=== PATIENT | male | born 1970 | race Caucasian/White ===

== ENCOUNTER 2017-04-23 15:20 | Outpatient (CLI) | payer BC, OTHER | END 2017-04-23 15:21 | disposition home or self-care (01) | LOC: LAB.R 15:20 | PROVIDERS: ATTEND Family Medicine | DX: N39.0 Urinary tract infection, site not specified (principal) | CPT/HCPCS: 87077; 87086 ==

== ENCOUNTER 2017-06-01 19:34 | Emergency (ER) | payer OTHER, BC ==
[2017-06-01 19:45] VITALS: BP 147/94
--- NOTE | 2017-06-01 21:31 | ED Physician Documentation ---
PD HPI UPPER EXT INJURY - Stated complaint Stated Complaint: RT ARM INJURY - Chief complaint Chief Complaint: Ext Problem - History obtained from History obtained from: Patient - History of Present Illness Location: Right, Arm (upper) Where injury occurred: Work Timing - onset: How many hours ago (1) Timing - duration: Hours (1) Timing - details: Abrupt onset Pain level max: 8 Pain level now: 6 Improved by: Rest, Ice, Immobilization Worsened by: Moving, Palpating Associated symptoms: No: Weakness, Numbness, Tingling, Swelling Similar symptoms before: Has not had sx before Recently seen: Not recently seen - Additonal information Additional information: Patient works as a middle school math teacher for [employer] and there was a vehicle stuck in the mud, they were trying to lift the vehicle to remove it from the mild when he felt a ripping tearing sensation in the right bicep. He is right-handed Review of Systems Constitutional: denies: Fever, Chills GI: denies: Vomiting Neurologic: denies: Focal weakness, Numbness PD PAST MEDICAL HISTORY - Past Medical History Past Medical History: Yes Cardiovascular: High cholesterol - Past Surgical History Past Surgical History: No - Present Medications Home Medications: Ambulatory Orders Medication Instructions Recorded Confirmed Cyclobenzaprine [Flexeril] 10 mg PO TID PRN #20 tablet 06/01/17 Meloxicam [Mobic] 15 mg PO DAILY PRN #20 tablet 06/01/17 Simvastatin 1 tab PO DAILY 06/01/17 06/01/17 - Allergies Allergies/Adverse Reactions: Allergies Allergy/AdvReac Type Severity Reaction Status Date / Time No Known Drug Allergies Allergy Verified 06/01/17 19:45 - Social History Does the pt smoke?: No Smoking Status: Never smoker Does the pt drink ETOH?: No Does the pt have substance abuse?: No - Immunizations Immunizations are current?: Yes - POLST Patient has POLST: No PD ED PE NORMAL - Vitals Vital signs reviewed: Yes - General General: Alert and oriented X 3, No acute distress - HEENT HEENT: Moist mucous membranes - Neck Neck: Supple, no meningeal sign - Cardiac Cardiac: RRR, Strong equal pulses - Respiratory Respiratory: No respiratory distress, Clear bilaterally - Derm Derm: Warm and dry - Extremities Extremities: Other (R arm - To palpation over the mid bicep with swelling to the mid/distal bicep and some deformity noted. He is not tender over the insertion of the biceps. The glenohumeral joint, but is tender over the insertion at the elbow. Neurovascularly intact. No bony tenderness. Pain with pronation supination) - Neuro Neuro: Alert and oriented X 3 Results - Vitals Vitals: Vital Signs - 24 hr 06/01/17 19:42 Temperature 36.6 C Heart Rate 92 Respiratory 18 Rate Blood Pressure 147/94 H O2 Saturation 98 Oxygen O2 Source Room air PD MEDICAL DECISION MAKING - ED course Complexity details: considered differential, d/w patient ED course: Patient is a 46-year-old male who presents to the emergency department with what appears to be a right biceps injury, unclear if purely muscular tear or if there is tendon involvement at this time. Placed in an Kristopher bandage for comfort and given a sling. Will prescribe muscle relaxants for home. We will have him follow-up closely with his doctor and/or orthopedics for further evaluation. Patient counseled regarding signs and symptoms for which I believe and urgent re -evaluation would be necessary. Patient with good understanding of and agreement to plan and is comfortable going home at this time This document was made in part using voice recognition software. While efforts are made to proofread this document, sound alike and grammatical errors may occur. L and I paperwork filled out Departure - Departure Disposition: 01 Home, Self Care Clinical Impression: Injury of biceps brachii muscle Condition: Good Instructions: ED Strain Muscle Ext Follow-Up: John Alan MD [Primary Care Provider] - Within 1 week [facility] [Provider Group] Prescriptions: Cyclobenzaprine [Flexeril] 10 mg PO TID PRN #20 tablet PRN Reason: Spasms Meloxicam [Mobic] 15 mg PO DAILY PRN #20 tablet PRN Reason: pain Comments: Return if you worsen. Use the KRISTOPHER wrap to help with compression. The sling can be used for comfort. Do not drive, operate heavy machinery or work while taking flexeril. You should have a repeat evaluation with your doctor in 1 week or with orthopedics. Discharge Date/Time: 06/01/17 21:51
== END 2017-06-01 21:51 | disposition home or self-care (01) ==
LOC: ED 19:34
DX: S46.201A Unspecified injury of muscle, fascia and tendon of other parts of biceps, right arm, initial encounter (principal); X50.9XXA Other and unspecified overexertion or strenuous movements or postures, initial encounter; Y99.0 Civilian activity done for income or pay; E78.00 Pure hypercholesterolemia, unspecified
CPT/HCPCS: 1040M; 99283

== ENCOUNTER 2018-11-27 09:01 | Outpatient (CLI) | payer BC ==
[2018-11-27 17:54] LABS: BASOPHILS # (AUTO) 0.1 10^3/uL (0.0-0.1); EOSINOPHILS # (AUTO) 0.1 10^3/uL (0.0-0.7); EOSINOPHILS % (AUTO) 2.1 %; HGB - HEMOGLOBIN 15.4 g/dL (14.0-18.0); LYMPHOCYTES # (AUTO) 1.4 10^3/uL (1.5-3.5); LYMPHOCYTES % (AUTO) 28.3 %; MEAN CORPUSCULAR HEMOGLOBIN 30.6 pg (27.0-31.0); MEAN CORPUSCULAR HGB CONC 32.3 g/dL (32.0-36.0); MEAN CORPUSCULAR VOLUME 94.6 fL (80.0-94.0); MEAN PLATELET VOLUME 9.7 fL (7.4-11.4); MONOCYTES # (AUTO) 0.5 10^3/uL (0.0-1.0); MONOCYTES % (AUTO) 10.3 %; NEUTROPHILS # (AUTO) 2.8 10^3/uL (1.5-6.6); NEUTROPHILS % (AUTO) 58.1 %; PLT - PLATELET COUNT 297 10^3/uL (130-450); RED BLOOD COUNT 5.04 10^6/uL (4.70-6.10); WHITE BLOOD COUNT 4.8 x10^3/uL (4.8-10.8)
[2018-11-27 18:16] LABS: ALBUMIN 4.5 g/dL (3.2-5.5); ALBUMIN/GLOBULIN RATIO 1.3 (1.0-2.2); ALKALINE PHOSPHATASE 59 IU/L (42-121); ALT ALANINE AMINOTRANSFERASE 35 IU/L (10-60); AST ASPARTATE AMINOTRANSFERASE 24 IU/L (10-42); BILIRUBIN,TOTAL 0.5 mg/dL (0.2-1.0); BUN - BLOOD UREA NITROGEN 14 mg/dL (6-20); CALCIUM 9.6 mg/dL (8.5-10.3); CARBON DIOXIDE - CO2 26 mmol/L (21-32); CHLORIDE 110 mmol/L (101-111); CHOL/HDL RATIO 3.7 (<5.0); CHOLESTEROL 156 mg/dL; GFR - MDRD 79 (>89); GLUCOSE 94 mg/dL (70-100); HDL CHOLESTEROL 42 mg/dL; LDL CHOLESTEROL,CALCULATED 100 mg/dL; LDL/HDL RATIO 2.4 (<3.6); SODIUM 144 mmol/L (135-145); TOTAL PROTEIN 8.1 g/dL (6.7-8.2); VLDL CHOLESTEROL 14 mg/dL
== END 2018-11-27 09:02 | disposition home or self-care (01) ==
LOC: LAB.S 09:01
PROVIDERS: ATTEND Family Medicine
DX: R53.83 Other fatigue (principal); F34.1 Dysthymic disorder; K58.9 Irritable bowel syndrome, unspecified; E78.5 Hyperlipidemia, unspecified; Z12.5 Encounter for screening for malignant neoplasm of prostate
CPT/HCPCS: 36415; 80053; 80061; 83721; 84153; 84443; 85025

== ENCOUNTER 2019-03-17 11:51 | Day surgery (SDC) | payer BC ==
[2019-03-17] MEDS ORDERED: MIDAZOLAM 2 MG/2 ML VIAL IVP ONE (11:52)
[2019-03-17] MEDS ORDERED: fentaNYL 250 MCG/5 ML VIAL IVP ONE (11:52)
[2019-03-17] MEDS ORDERED: LACTATED RINGERS 1,000 ML IV ONE (12:06)
[2019-03-17 13:50] VITALS: BP 123/70
== END 2019-03-17 11:52 | disposition home or self-care (01) ==
LOC: SDS 11:51
PROVIDERS: ATTEND Surgery
PROC: 0DJD8ZZ Inspection of Lower Intestinal Tract, Via Natural or Artificial Opening Endoscopic (ICD-10-PCS; principal; 2019-03-17 12:30)
DX: Z12.11 Encounter for screening for malignant neoplasm of colon (principal); Z87.891 Personal history of nicotine dependence; Z87.19 Personal history of other diseases of the digestive system
CPT/HCPCS: 45378; J3010; J7120

== ENCOUNTER 2019-07-12 16:06 | Outpatient (CLI) | payer BC ==
--- NOTE | 2019-07-13 04:31 | XRAY Report ---
Reason: KNEE PAIN LEFT,KNEE PAIN RIGHT Procedure Date: 07/12/2019 Accession Number: [id number] / [id number] Procedure: XR - Knee Standing BILAT CPT Code: Final Report FULL RESULT: EXAMS: 1. Right Knee Radiography 2. Left Knee Radiography EXAM DATE:07/12/2019 04:35 PM. CLINICAL HISTORY:KNEE PAIN LEFT, KNEE PAIN RIGHT. COMPARISON: None. TECHNIQUE: 3 views each. FINDINGS: Right Knee: Bones: Normal. No fractures or bone lesions. Joints: Mild marginal osteophyte formation, greatest in the lateral compartment. Subchondral sclerosis at the medial femoral condyle. No effusion. No subluxations. Soft Tissues: Normal. No soft tissue swelling. Left Knee: Bones: Normal. No fractures or bone lesions. Joints: Mild marginal osteophyte formation, greatest in the lateral compartment. Subchondral sclerosis at the medial femoral condyle. No effusion. No subluxations. Soft Tissues: Normal. No soft tissue swelling. IMPRESSION: No acute bony abnormality. Bilateral mild knee osteoarthritis. RADIA
== END 2019-07-12 16:07 | disposition home or self-care (01) ==
LOC: DI 16:06
PROVIDERS: ATTEND Physician Assistant
DX: M17.0 Bilateral primary osteoarthritis of knee (principal)
CPT/HCPCS: 73565

== ENCOUNTER 2020-03-20 16:07 | Emergency (ER) | payer BC ==
--- NOTE | 2020-03-20 16:39 | ED Physician Documentation ---
PD HPI CHEST PAIN - Stated complaint Stated Complaint: HIGH HEART RATE/BP - Chief complaint Chief Complaint: Cardiac - History obtained from History obtained from: Patient - Additional information Additional information: Healthy 49-year-old gentleman who is on a statin, otherwise no meds. History of "borderline" hypertension. Last night he noticed on his Fitbit that his heart rate was in the 120s. He was relatively asymptomatic with that but feeling a little off. No chest pain. Today has a very mild left scapular pain. No shortness of breath. No pedal edema or calf pain. Review of Systems Ten Systems: 10 systems reviewed and negative Constitutional: reports: Reviewed and negative. denies: Weight Loss Ears: reports: Ear pain (Mild, left) Nose: reports: Reviewed and negative Cardiac: denies: Chest pain / pressure, Palpitations, Pedal edema, Calf pain Respiratory: denies: Dyspnea, Cough PD PAST MEDICAL HISTORY - Past Medical History Cardiovascular: High cholesterol Respiratory: Pneumonia Endocrine/Autoimmune: None GI: None : None HEENT: None Psych: None Musculoskeletal: None Derm: None - Past Surgical History Past Surgical History: No Ortho: Arthroscopic surgery, Other HEENT: Tonsil/Adenoidectomy - Present Medications Home Medications: Ambulatory Orders Medication Instructions Recorded Confirmed Simvastatin 1 tab PO DAILY 06/01/17 03/20/20 - Allergies Allergies/Adverse Reactions: Allergies Allergy/AdvReac Type Severity Reaction Status Date / Time No Known Drug Allergies Allergy Verified 03/20/20 16:18 - Social History Does the pt smoke?: No Smoking Status: Never smoker Does the pt drink ETOH?: No Does the pt have substance abuse?: No - Immunizations Immunizations are current?: Yes - POLST Patient has POLST: No PD ED PE NORMAL - Vitals Vital signs reviewed: Yes - General General: Alert and oriented X 3, No acute distress - HEENT HEENT: PERRL, EOMI - Neck Neck: Supple, no meningeal sign, No bony TTP - Cardiac Cardiac: RRR, No murmur - Respiratory Respiratory: No respiratory distress, Clear bilaterally - Abdomen Abdomen: Non tender - Back Back: No CVA TTP, No spinal TTP - Derm Derm: Normal color, Warm and dry - Extremities Extremities: No edema, No calf tenderness / cord - Neuro Neuro: Alert and oriented X 3, Normal speech Results - Vitals Vitals: Vital Signs - 24 hr 03/20/20 03/20/20 16:16 16:50 Temperature 36.4 C L Heart Rate 90 94 Respiratory 20 21 Rate Blood Pressure 136/96 H 140/109 H O2 Saturation 95 94 Oxygen O2 Source Room air - EKG (time done) 1612 Rate: Rate (enter#) (101) Rhythm: Sinus tachycardia, LAE (prob) Maxie: Normal Intervals: Normal [place] QRS: Normal Ischemia: Normal ST segments Computer interpretation: Agree with computer - Labs Labs: Laboratory Tests 03/20/20 03/20/20 03/20/20 16:42 16:42 16:42 WBC 9.2 RBC 5.02 Hgb 15.9 Hct 46.3 MCV 92.2 MCH 31.7 H MCHC 34.3 RDW 12.1 Plt Count 294 MPV 8.9 Neut # (Auto) 5.9 Lymph # (Auto) 2.2 [place] # (Auto) 0.9 Eos # (Auto) 0.1 Baso # (Auto) 0.1 Absolute Nucleated RBC 0.00 Nucleated RBC % 0.0 D-Dimer Sodium 138 Potassium 3.9 Chloride 104 Carbon Dioxide 23 Anion Gap 11.0 BUN 21 H Creatinine 1.1 Estimated GFR (MDRD) 71 L Glucose 86 Calcium 9.1 Total Bilirubin 0.5 AST 25 ALT 34 Alkaline Phosphatase 60 Troponin I High Sens < 2.3 L Total Protein 8.0 Albumin 4.6 Globulin 3.4 Albumin/Globulin Ratio 1.4 Lipase 28 03/20/20 17:03 WBC RBC Hgb Hct MCV MCH MCHC RDW Plt Count MPV Neut # (Auto) Lymph # (Auto) [place] # (Auto) Eos # (Auto) Baso # (Auto) Absolute Nucleated RBC Nucleated RBC % D-Dimer < 200.0 L Sodium Potassium Chloride Carbon Dioxide Anion Gap BUN Creatinine Estimated GFR (MDRD) Glucose Calcium Total Bilirubin AST ALT Alkaline Phosphatase Troponin I High Sens Total Protein Albumin Globulin Albumin/Globulin Ratio Lipase - Rads (name of study) 1v chest Radiology: EMP read contemporaneously (NAD) PD MEDICAL DECISION MAKING - ED course ED course: 49-year-old gentleman with elevated heart rate at home. Here normal. Wonder if he had A. fib, has left atrial enlargement on EKG. Watchful waiting and follow- up were advised. No pertinent positive findings here. Departure - Departure Disposition: 01 Home, Self Care Clinical Impression: Tachycardia Condition: Good Record reviewed to determine appropriate education?: Yes Instructions: ED Chest Pain NonCardiac Comments: Return if it develops again or otherwise worsens. Follow-up with your doctor regardless.
[2020-03-20 16:50] LABS: BASOPHILS # (AUTO) 0.1 10^3/uL (0.0-0.1); BASOPHILS % (AUTO) 0.8 %; EOSINOPHILS # (AUTO) 0.1 10^3/uL (0.0-0.7); HGB - HEMOGLOBIN 15.9 g/dL (14.0-18.0); LYMPHOCYTES # (AUTO) 2.2 10^3/uL (1.5-3.5); LYMPHOCYTES % (AUTO) 24.5 %; MEAN CORPUSCULAR HEMOGLOBIN 31.7 pg (27.0-31.0); MEAN CORPUSCULAR HGB CONC 34.3 g/dL (32.0-36.0); MEAN CORPUSCULAR VOLUME 92.2 fL (80.0-94.0); MEAN PLATELET VOLUME 8.9 fL (7.4-11.4); MONOCYTES # (AUTO) 0.9 10^3/uL (0.0-1.0); MONOCYTES % (AUTO) 9.3 %; NEUTROPHILS # (AUTO) 5.9 10^3/uL (1.5-6.6); NEUTROPHILS % (AUTO) 64.2 %; PLT - PLATELET COUNT 294 10^3/uL (130-450); RED BLOOD COUNT 5.02 10^6/uL (4.70-6.10); RED CELL DISTRIBUTION WIDTH 12.1 % (12.0-15.0); WHITE BLOOD COUNT 9.2 x10^3/uL (4.8-10.8)
[2020-03-20 16:53] VITALS: BP 140/109
--- NOTE | 2020-03-20 17:00 | XRAY Report ---
PROCEDURE: Chest 1 View X-Ray INDICATIONS: back pain TECHNIQUE: One view of the chest was acquired. COMPARISON: None FINDINGS: Surgical changes and devices: None. Lungs and pleura: No pleural effusions or pneumothorax. Lungs are clear. Mediastinum: Mediastinal contours appear normal. Heart size is normal. Bones and chest wall: No suspicious bony lesions. Overlying soft tissues appear unremarkable. IMPRESSION: No acute cardiopulmonary pathology. Reviewed by: Anthony Jorgensen MD on 03/20/2020 4:59 PM [facility] Approved by: Anthony Jorgensen MD on 03/20/2020 4:59 PM PST Station ID: [id number]
[2020-03-20 17:05] LABS: ALBUMIN 4.6 g/dL (3.2-5.5); ALBUMIN/GLOBULIN RATIO 1.4 (1.0-2.2); BILIRUBIN,TOTAL 0.5 mg/dL (0.2-1.0); CALCIUM 9.1 mg/dL (8.5-10.3); CREATININE 1.1 mg/dL (0.6-1.2)
== END 2020-03-20 17:28 | disposition home or self-care (01) ==
LOC: ED 16:07
DX: R00.0 Tachycardia, unspecified (principal); I51.7 Cardiomegaly; E78.00 Pure hypercholesterolemia, unspecified
CPT/HCPCS: 36415; 80053; 83690; 84484; 85025; 85379; 93005; 99284; 99285

== ENCOUNTER 2020-09-27 20:46 | Emergency (ER) | payer BC ==
[2020-09-27 21:07] VITALS: BP 149/104
[2020-09-27 21:14] LABS: BASOPHILS # (AUTO) 0.1 10^3/uL (0.0-0.1); BASOPHILS % (AUTO) 0.9 %; EOSINOPHILS # (AUTO) 0.1 10^3/uL (0.0-0.7); EOSINOPHILS % (AUTO) 1.6 %; HGB - HEMOGLOBIN 15.2 g/dL (14.0-18.0); LYMPHOCYTES # (AUTO) 2.1 10^3/uL (1.5-3.5); LYMPHOCYTES % (AUTO) 33.6 %; MEAN CORPUSCULAR HEMOGLOBIN 31.9 pg (27.0-31.0); MEAN CORPUSCULAR HGB CONC 34.5 g/dL (32.0-36.0); MEAN CORPUSCULAR VOLUME 92.4 fL (80.0-94.0); MONOCYTES # (AUTO) 0.6 10^3/uL (0.0-1.0); MONOCYTES % (AUTO) 9.9 %; NEUTROPHILS # (AUTO) 3.4 10^3/uL (1.5-6.6); NEUTROPHILS % (AUTO) 53.8 %; PLT - PLATELET COUNT 300 10^3/uL (130-450); RED BLOOD COUNT 4.76 10^6/uL (4.70-6.10); RED CELL DISTRIBUTION WIDTH 12.3 % (12.0-15.0); WHITE BLOOD COUNT 6.4 x10^3/uL (4.8-10.8)
[2020-09-27] MEDS ORDERED: CHERRY SYRUP 10 ML UDC PO ONE (21:24)
[2020-09-27] MEDS ORDERED: FAMOTIDINE 20 MG TABLET PO STA (21:24)
[2020-09-27] MEDS ORDERED: LORATADINE 10 MG TABLET PO STA (21:24)
[2020-09-27] MEDS ORDERED: DEXAMETHASONE 10 MG/ML VIAL PO STA (21:24)
[2020-09-27 21:26] LABS: ALBUMIN 4.4 g/dL (3.2-5.5); ALBUMIN/GLOBULIN RATIO 1.3 (1.0-2.2); BILIRUBIN,TOTAL 0.5 mg/dL (0.2-1.0); CALCIUM 9.2 mg/dL (8.5-10.3); CREATININE 1.4 mg/dL (0.6-1.2); POTASSIUM 3.7 mmol/L (3.5-5.0); TOTAL PROTEIN 7.9 g/dL (6.7-8.2)
--- NOTE | 2020-09-27 21:26 | ED Physician Documentation ---
History of Present Illness - Stated complaint Stated Complaint: ALLERGIC REACTION - Chief complaint Chief Complaint: Allergic Rx - Additonal information Additional information: 50-year-old male presents emergency department for concerns of an acute allergic reaction. He reports sitting at home while his girlfriend was cooking dinner and developed sudden onset watery eyes nasal congestion feeling of tightness of breath and shortness of air. He took 4 Benadryl and try to walk outside to get fresh air but did not feel like it helped therefore he came to the ER. By the time he had arrived to the ER he was feeling much better. He did develop some minor hives on his skin which are shortly resolving. He does report a history of seasonal allergies as well is allergy to dust and mold but has never had a reaction like this. No new foods shellfish. Does not take NSAID medication nor does he take SCOTT inhibitor's. No tongue or lip swelling. No neck swelling. Normal phonation. Review of Systems Constitutional: reports: Reviewed and negative Eyes: reports: Discharge, Irritation Ears: reports: Reviewed and negative Nose: reports: Reviewed and negative Throat: reports: Reviewed and negative Cardiac: reports: Reviewed and negative Respiratory: reports: Dyspnea. denies: Cough, Hemoptysis, Wheezing GI: reports: Reviewed and negative : reports: Reviewed and negative Skin: reports: Rash Musculoskeletal: reports: Reviewed and negative PD PAST MEDICAL HISTORY - Past Medical History Past Medical History: Yes Cardiovascular: High cholesterol Respiratory: Pneumonia Endocrine/Autoimmune: None GI: None : None HEENT: None Psych: None Musculoskeletal: None Derm: None - Past Surgical History Past Surgical History: No Ortho: Arthroscopic surgery, Other HEENT: Tonsil/Adenoidectomy - Present Medications Home Medications: Ambulatory Orders Medication Instructions Recorded Confirmed Simvastatin 1 tab PO DAILY 06/01/17 09/27/20 Famotidine [Pepcid] 20 mg PO BID #60 tablet 09/27/20 Loratadine [Claritin] 10 mg PO DAILY #30 tablet 09/27/20 - Allergies Allergies/Adverse Reactions: Allergies Allergy/AdvReac Type Severity Reaction Status Date / Time No Known Drug Allergies Allergy Verified 03/20/20 16:18 - Social History Does the pt smoke?: No Smoking Status: Never smoker Does the pt drink ETOH?: No Does the pt have substance abuse?: No - Immunizations Immunizations are current?: Yes - POLST Patient has POLST: No PD ED PE EXPANDED - General General: Alert, No acute distress, Well developed/nourished - HEENT HEENT: PERRL, Moist mucous membranes, Pharynx normal, Buccal laceration, Other. No: Swollen tonsils, Tonsillar exudate - Neck Neck: Supple w/out meningeal sx. No: Adenopathy - Cardiac Cardiac: Regular Rate, Radial strong equal, Cap refill < 2 sec - Respiratory Respiratory: Clear to ausultation kaitlin. No: Distress, Labored - Abdomen Abdomen: Normal Bowel sounds. No: Tender to palpation - Derm Derm: Normal color, Warm and dry, Urticaria (Resolving urticaria on trunk.) - Extremities Extremities: Normal. No: Deformity, Tenderness - Neuro Neuro: Alert and Oriented X 3, CNII-XII intact - GCS Eye Opening: Spontaneous Motor: Obeys Commands Verbal: Oriented Total: 15 Results - Vitals Vitals: Vital Signs - 24 hr 09/27/20 09/27/20 09/27/20 20:48 20:52 21:06 Temperature 36.8 C 36.8 C Heart Rate 94 94 85 Respiratory 18 18 19 Rate Blood Pressure 164/111 H 164/111 H 149/104 H O2 Saturation 96 96 96 Oxygen O2 Source Room air - EKG (time done) 2100 Rate: Rate (enter#) (83) Rhythm: NSR Madeline: Normal Intervals: Normal CT QRS: Normal Ischemia: Normal ST segments Compare to prior EKG: Old EKG unavailable Computer interpretation: Agree with computer - Labs Labs: Laboratory Tests 09/27/20 09/27/20 09/27/20 21:09 21:09 21:09 WBC 6.4 RBC 4.76 Hgb 15.2 Hct 44.0 MCV 92.4 MCH 31.9 H MCHC 34.5 RDW 12.3 Plt Count 300 MPV 9.0 Neut # (Auto) 3.4 Lymph # (Auto) 2.1 [place] # (Auto) 0.6 Eos # (Auto) 0.1 Baso # (Auto) 0.1 Absolute Nucleated RBC 0.00 Nucleated RBC % 0.0 Sodium 140 Potassium 3.7 Chloride 105 Carbon Dioxide 25 Anion Gap 10.0 BUN 15 Creatinine 1.4 H Estimated GFR (MDRD) 53 L Glucose 106 H Calcium 9.2 Total Bilirubin 0.5 AST 23 ALT 29 Alkaline Phosphatase 63 Troponin I High Sens < 2.3 L Total Protein 7.9 Albumin 4.4 Globulin 3.5 Albumin/Globulin Ratio 1.3 Lipase 37 PD MEDICAL DECISION MAKING - ED course Complexity details: reviewed results, re-evaluated patient, d/w patient ED course: 50-year-old male presents emergency department for evaluation of an acute likely allergic reaction. He was sitting at home began to have sudden onset watering of his eyes nasal congestion feeling somewhat short of breath. He took 100 mg of Benadryl at home and try to walk outside to get fresh air but symptoms did not improve therefore he came to the ER. By the time he arrived here he had improved. He did develop some minor hives which were resolving by the time of my evaluation. Patient has no history of anaphylaxis. He did not have any tongue or lip swelling no evidence of airway impingement. He was given 10 mg of Decadron as well as Pepcid and Claritin here in the emergency department. Screening labs and EKG do not reveal any worrisome abnormality. The cause of his allergic reaction is not clear though I suspect seasonal allergies or dander at home. Patient is advised to take Benadryl and Claritin at home. As well as Pepcid for the next few days. Continue follow-up with his primary care provider. We did discuss today's elevated blood pressure readings and he is scheduled to undergo a physical upcoming. Departure - Departure Disposition: 01 Home, Self Care Clinical Impression: Allergic reaction Qualifiers: Encounter type: initial encounter Qualified Code(s): T78.40XA - Allergy, unspecified, initial encounter Condition: Stable Record reviewed to determine appropriate education?: Yes Prescriptions: Loratadine [Claritin] 10 mg PO DAILY #30 tablet Famotidine [Pepcid] 20 mg PO BID #60 tablet Comments: Angelito you are seen in the emergency department today for an allergic reaction. It is not clear what you were having a reaction to at home. Here in the emergency department you were given 10 mg of Decadron which is a steroid that should help markedly with the wheeze and hives that you had. You are also given Claritin which is an antihistamine allergy pill and Pepcid. I do recommend that you take Claritin daily and Pepcid twice daily for the next week. It is okay to take 25 mg of Benadryl once or twice a day. If you have a similar reaction at home, have tongue or lip swelling cannot swallow or breathe normally please return immediately to the ER. Your blood pressure was noted to be modestly elevated today in the ER. This could be a stress reaction but it is important that you discuss it with your primary care doctor in follow-up.
== END 2020-09-27 22:11 | disposition home or self-care (01) ==
LOC: ED 20:46
DX: T78.40XA Allergy, unspecified, initial encounter (principal)
CPT/HCPCS: 36415; 80053; 83690; 84484; 85025; 93005; 99283; 99284; A9270

== ENCOUNTER 2020-10-05 09:07 | Outpatient (CLI) | payer BC ==
[2020-10-05 11:40] LABS: BASOPHILS # (AUTO) 0.1 10^3/uL (0.0-0.1); BASOPHILS % (AUTO) 1.2 %; EOSINOPHILS # (AUTO) 0.1 10^3/uL (0.0-0.7); EOSINOPHILS % (AUTO) 2.1 %; HCT - HEMATOCRIT 46.7 % (42.0-52.0); HGB - HEMOGLOBIN 15.7 g/dL (14.0-18.0); LYMPHOCYTES # (AUTO) 1.6 10^3/uL (1.5-3.5); LYMPHOCYTES % (AUTO) 28.1 %; MEAN CORPUSCULAR HEMOGLOBIN 31.8 pg (27.0-31.0); MEAN CORPUSCULAR HGB CONC 33.6 g/dL (32.0-36.0); MEAN CORPUSCULAR VOLUME 94.5 fL (80.0-94.0); MEAN PLATELET VOLUME 9.7 fL (7.4-11.4); MONOCYTES # (AUTO) 0.6 10^3/uL (0.0-1.0); MONOCYTES % (AUTO) 11.2 %; NEUTROPHILS # (AUTO) 3.3 10^3/uL (1.5-6.6); NEUTROPHILS % (AUTO) 57.2 %; PLT - PLATELET COUNT 322 10^3/uL (130-450); RED BLOOD COUNT 4.94 10^6/uL (4.70-6.10); RED CELL DISTRIBUTION WIDTH 12.6 % (12.0-15.0); WHITE BLOOD COUNT 5.7 x10^3/uL (4.8-10.8)
[2020-10-05 11:53] LABS: ALBUMIN 4.5 g/dL (3.2-5.5); ALBUMIN/GLOBULIN RATIO 1.3 (1.0-2.2); ALKALINE PHOSPHATASE 53 IU/L (42-121); ALT ALANINE AMINOTRANSFERASE 25 IU/L (10-60); AST ASPARTATE AMINOTRANSFERASE 21 IU/L (10-42); BILIRUBIN,TOTAL 0.8 mg/dL (0.2-1.0); BUN - BLOOD UREA NITROGEN 14 mg/dL (6-20); CALCIUM 9.4 mg/dL (8.5-10.3); CARBON DIOXIDE - CO2 25 mmol/L (21-32); CHLORIDE 103 mmol/L (101-111); CHOL/HDL RATIO 4.3 (<5.0); CHOLESTEROL 171 mg/dL; CREATININE 1.1 mg/dL (0.6-1.2); GFR - MDRD 70 (>89); GLUCOSE 96 mg/dL (70-100); HDL CHOLESTEROL 40 mg/dL; LDL CHOLESTEROL,CALCULATED 98 mg/dL; LDL/HDL RATIO 2.5 (<3.6); POTASSIUM 4.2 mmol/L (3.5-5.0); SODIUM 138 mmol/L (135-145); TRIGLYCERIDES 163 mg/dL; VLDL CHOLESTEROL 33 mg/dL
[2020-10-05 12:05] LABS: THYROID STIMULATING HORMONE 4.57 uIU/mL (0.34-5.60)
== END 2020-10-05 09:08 | disposition home or self-care (01) ==
LOC: LAB.N 09:07
PROVIDERS: ATTEND Family Medicine
DX: R06.09 Other forms of dyspnea (principal); R07.89 Other chest pain; R03.0 Elevated blood-pressure reading, without diagnosis of hypertension
CPT/HCPCS: 36415; 80053; 80061; 83721; 84443; 85025

== ENCOUNTER 2020-10-05 09:13 | Outpatient (CLI) | payer BC ==
--- NOTE | 2020-10-05 10:47 | XRAY Report ---
PROCEDURE: Chest 2 View X-Ray INDICATIONS: Chest tightness TECHNIQUE: 2 view(s) of the chest. COMPARISON: None. FINDINGS: Surgical changes and devices: None. Lungs and pleura: No pleural effusions or pneumothorax. Lungs are clear. Mediastinum: Mediastinal contours are normal. Heart size is normal. Bones and chest wall: No suspicious bony abnormalities. Soft tissues appear unremarkable. IMPRESSION: No acute cardiopulmonary process demonstrated radiographically. Reviewed by: Anirudh Conley MD on 10/05/2020 10:46 AM PDT Approved by: Anirudh Conley MD on 10/05/2020 10:46 AM PDT Station ID: [id number]
== END 2020-10-05 09:14 | disposition home or self-care (01) ==
LOC: DI.N 09:13
PROVIDERS: ATTEND Family Medicine
DX: R07.89 Other chest pain (principal)

== ENCOUNTER 2020-11-02 15:50 | Outpatient (CLI) | payer BC | END 2020-11-02 15:51 | disposition home or self-care (01) | LOC: COV 15:50 | PROVIDERS: ATTEND Family Medicine | DX: U07.1 COVID-19 (principal) ==

== ENCOUNTER 2020-11-30 08:49 | Outpatient (CLI) | payer BC ==
--- NOTE | 2020-11-30 11:21 | CARDIAC PROCEDURE NOTE ---
Stress Test Report Service Date: 11/30/20 Service Time: 10:30 Ordering Provider: Naeem Larios MD Indication for Test: Assess for an ischemic contribution to a gradual decrease in exertional tolerance over the past 18-24 months, associated with worsening exertional dyspnea and exertional chest tightness. Significant Medical History: -Angelito has a history of dyslipidemia treated with simvastatin for about 10-12 years and has at times had borderline blood pressure elevation, not requiring ongoing antihypertensive treatment. He is a [employer], based in [place], for the [employer], thus has a stressful occupation. Prior to the onset of the Covid pandemic he was working out more regularly and began to notice a modest decrease in his exertional tolerance, which worsened significantly with the forced decrease in the frequency of his workouts. The more concerning aspect to him is progressive exertional dyspnea, but there has also been associated exertional chest tightness, that has not been associated with diaphoresis, lightheadedness or palpitations and does resolve gradually with rest. He denies occurrence of significant chest discomfort at rest, noting that very rarely there is some mild chest pressure when he is not active. -His evaluation emanates from a visit to the [facility] Emergency Department in late August of this year, for what he thought could be an allergic reaction with perioral tingling, not responsive to Benadryl. The evaluation was not yielding of a cause for this possible allergic reaction, but in view of the above- described symptomatology it was deemed appropriate that he undergo a stress evaluation for a possible ischemic mechanism for his symptoms. Cardiac Risk Factors: Positive for treated dyslipidemia, less so for intermittent elevation of blood pressure without diagnosis of hypertension and family history, that includes a maternal uncle dying at age 65 from coronary heart disease. He has not been a cigarette smoker and has no history of diabetes. Type of Stress Test: ETT with Myocardial Perfusion Imaging Procedure: -Exercise Treadmill Test- After signing informed consent, the patient underwent rest perfusion imaging. He then performed treadmill exercise using a Esteban protocol. The patient exercised for 9 minutes 19 seconds and achieved a peak heart rate of 169 (100 percent predicted maximum heart rate for age), and an estimated workload of 10.7 METS. The test was terminated due to shortness of breath after attaining the target HR, with only the mildest stress-associated chest tightness. Resting heart rate: 83 Peak heart rate: 169 Normal response to exercise. Resting BP: 137/96 Peak BP: 217/102 Elevated resting BP with mildly hypertensive response to exercise. Rhythm during exercise: Sinus rhythm with rare isolated monomorphic PVCs. Symptoms: Stress-associated marked dyspnea, with mild chest tightness (rated "1/2" on scale of 0-10). EKG at rest showed normal sinus rhythm, normal in all aspects. EKG at peak stress showed J-point depression with primarily upsloping ST depression, though with more horizontal ST depression in some beats; overall probably borderline positive for ischemia by EKG criteria. In Recovery, heart rate, dyspnea and ST changes rapidly returned to baseline, with BP decrease to 134/102 at 7 minutes. Nuclear imaging performed at rest and with stress and will be reported separately. Summary: 1) Exercise tolerance about average for age and gender, as evidenced by attainment of 10.7 METS, with JORJE of 7%. 2) Normal resting EKG. 3) Adequate level of exercise was achieved on this treadmill stress test. 4) Mildly elevated resting BP with moderately hypertensive response to exercise. 5) Borderline ischemic changes by EKG criteria were seen at peak stress. 6) Gated nuclear image interpretation revealed normal left ventricular size, wall motion and systolic function with normal range ejection fraction. SPECT ursula lysis revealed a small fixed apical defect, attributed to possible apical thinning, with normal perfusion otherwise throughout the myocardium. Findings interpreted as negative for inducible ischemia. See separate report for further details. CONCLUSIONS: 1. Average exertional tolerance, with modestly hypertensive response. 2. Abnormal EKG response, consistent with mild ischemia, though potentially could be secondary to elevated blood pressure. 3. SPECT imaging suggests a small fixed apical defect, possibly due to apical thinning, but ischemia/prior infarct cannot be definitively excluded. 4. Results reviewed with the patient on 12/01/20, including recommendation for further evaluation by Cardiology to include consideration of possible coronary angiography, given his high risk occupation.
--- NOTE | 2020-11-30 16:03 | Nuclear Medicine Report ---
PROCEDURE: Rest and exercise myocardial perfusion SPECT with gated imaging and ejection fraction INDICATIONS: EXERTIONAL DYSPNEA RADIOPHARMACEUTICAL: 9.7 mCi Tc-99m Myoview IV at rest and 26.9 mCi Tc-99m Myoview IV at peak exerci se. Fvv-[id number]-[id number] was performed. TECHNIQUE: Radiopharmaceutical was injected at peak stress test, and also at rest. SPECT images wer e obtained. SPECT myocardial perfusion images were displayed in short axis, horizontal long axis, an d vertical long axis views. Gated images were reviewed using [employer] software. COMPARISON: None available. FINDINGS: Raw data: There is good myocardial labeling by radiotracer. No significant motion artifacts. Lung- to-heart ratio is 0.36 (normal is less than 0.46 for tetrafosmin tracer). Left ventricle function: Gated images demonstrate normal left ventricle wall thickening. No segment al wall motion abnormality. No transient ischemic dilation; TID is 1.02 (normal less than 1.30). Th e left ventricle resting end-diastolic volume is normal. Left ventricle stress ejection fraction is 65%.; normal values are above 45%. Myocardial perfusion: Small, mild, fixed apical perfusion defect is compatible with apical thinning. There is otherwise normal distribution of activity in the left and right ventricular myocardium. No reversible perfusion defects to suggest myocardial ischemia. IMPRESSION: 1. Normal myocardial perfusion images. No perfusion defect to suggest myocardial ischemia or infarct. 2. Normal left ventricular volume and systolic function. 3. Please correlate with stress EKG report. PQRS ATTESTATIONS: Measure 322 - Is this imaging test primarily performed on a low-risk surgery patient for preoperative evaluation within 30 days preceding their low-risk non-cardiac surgery? Low-risk surgery is defined as cardiac or myocardial infarction less than 1%, including (but not limited to) endoscopic pr ocedures, superficial procedures, cataract surgery, and excisional breast surgery: Answer: No Measure 323 - Is this imaging test performed primarily for the monitoring of an asymptomatic patient who had percutaneous coronary intervention on the visit date or within 2 years of the visit date? An swer: No Measure 324 - Is this imaging test performed primarily for the initial detection and risk assessment on an asymptomatic, low coronary heart disease patient? Low CHD risk definition = clinicians should consider the maximum number of available patient factors used to estimate risk based on Stevinson (A TP III criteria), typically age, gender, diabetes, smoking status, and use of blood pressure medicati on, and integrate age appropriate estimates for missing elements, such as LDL or standard blood press ure. Answer: No Reviewed by: Catina Barnes MD on 11/30/2020 4:02 PM PDT Approved by: Ctaina Barnes MD on 11/30/2020 4:02 PM PDT Station ID: [id number]
== END 2020-11-30 08:50 | disposition home or self-care (01) ==
LOC: DI 08:49
PROVIDERS: ATTEND Family Medicine
DX: R94.31 Abnormal electrocardiogram [ECG] [EKG] (principal); E78.5 Hyperlipidemia, unspecified
CPT/HCPCS: 78452; 93017; A9500

== ENCOUNTER 2021-05-24 09:08 | Outpatient (CLI) | payer BC ==
[2021-05-24 09:39] LABS: BASOPHILS % (AUTO) 0.9 %; EOSINOPHILS # (AUTO) 0.1 10^3/uL (0.0-0.7); HCT - HEMATOCRIT 44.8 % (42.0-52.0); HGB - HEMOGLOBIN 15.1 g/dL (14.0-18.0); LYMPHOCYTES # (AUTO) 1.5 10^3/uL (1.5-3.5); LYMPHOCYTES % (AUTO) 32.5 %; MEAN CORPUSCULAR HEMOGLOBIN 31.8 pg (27.0-31.0); MEAN CORPUSCULAR HGB CONC 33.7 g/dL (32.0-36.0); MEAN CORPUSCULAR VOLUME 94.3 fL (80.0-94.0); MEAN PLATELET VOLUME 9.2 fL (7.4-11.4); MONOCYTES # (AUTO) 0.5 10^3/uL (0.0-1.0); MONOCYTES % (AUTO) 11.1 %; NEUTROPHILS # (AUTO) 2.4 10^3/uL (1.5-6.6); NEUTROPHILS % (AUTO) 53.3 %; PLT - PLATELET COUNT 291 10^3/uL (130-450); RED BLOOD COUNT 4.75 10^6/uL (4.70-6.10); RED CELL DISTRIBUTION WIDTH 12.1 % (12.0-15.0); WHITE BLOOD COUNT 4.5 x10^3/uL (4.8-10.8)
[2021-05-24 10:00] LABS: ALBUMIN 4.6 g/dL (3.2-5.5); ALBUMIN/GLOBULIN RATIO 1.4 (1.0-2.2); ALKALINE PHOSPHATASE 46 IU/L (42-121); ALT ALANINE AMINOTRANSFERASE 28 IU/L (10-60); AST ASPARTATE AMINOTRANSFERASE 24 IU/L (10-42); BUN - BLOOD UREA NITROGEN 24 mg/dL (6-20); CALCIUM 9.4 mg/dL (8.5-10.3); CARBON DIOXIDE - CO2 28 mmol/L (21-32); CHLORIDE 103 mmol/L (101-111); CHOL/HDL RATIO 5.1 (<5.0); CHOLESTEROL 167 mg/dL; GFR - MDRD 78 (>89); GLUCOSE 97 mg/dL (70-100); HDL CHOLESTEROL 33 mg/dL; LDL CHOLESTEROL,CALCULATED 118 mg/dL; LDL/HDL RATIO 3.6 (<3.6); POTASSIUM 4.4 mmol/L (3.5-5.0); SODIUM 137 mmol/L (135-145); TOTAL PROTEIN 7.9 g/dL (6.7-8.2); TRIGLYCERIDES 78 mg/dL; VLDL CHOLESTEROL 16 mg/dL
[2021-05-24 10:08] LABS: THYROID STIMULATING HORMONE 4.72 uIU/mL (0.34-5.60)
== END 2021-05-24 09:09 | disposition home or self-care (01) ==
LOC: LAB 09:08
PROVIDERS: ATTEND Internal Medicine
DX: I10 Essential (primary) hypertension (principal); E78.5 Hyperlipidemia, unspecified; Z86.59 Personal history of other mental and behavioral disorders
CPT/HCPCS: 36415; 80053; 80061; 83721; 84443; 85025

== ENCOUNTER 2021-08-10 08:26 | Outpatient (CLI) | payer BC ==
[2021-08-10 12:17] LABS: ALBUMIN 4.3 g/dL (3.2-5.5); ALBUMIN/GLOBULIN RATIO 1.3 (1.0-2.2); ALKALINE PHOSPHATASE 48 IU/L (42-121); ALT ALANINE AMINOTRANSFERASE 22 IU/L (10-60); AST ASPARTATE AMINOTRANSFERASE 18 IU/L (10-42); BILIRUBIN,TOTAL 0.6 mg/dL (0.2-1.0); BUN - BLOOD UREA NITROGEN 20 mg/dL (6-20); CALCIUM 9.3 mg/dL (8.5-10.3); CARBON DIOXIDE - CO2 25 mmol/L (21-32); CHLORIDE 106 mmol/L (101-111); CHOL/HDL RATIO 3.7 (<5.0); CHOLESTEROL 159 mg/dL; CREATININE 1.1 mg/dL (0.6-1.2); GFR - MDRD 70 (>89); GLUCOSE 104 mg/dL (70-100); HDL CHOLESTEROL 43 mg/dL; LDL CHOLESTEROL,CALCULATED 100 mg/dL; LDL/HDL RATIO 2.3 (<3.6); POTASSIUM 4.2 mmol/L (3.5-5.0); SODIUM 140 mmol/L (135-145); TOTAL PROTEIN 7.7 g/dL (6.7-8.2); TRIGLYCERIDES 79 mg/dL; VLDL CHOLESTEROL 16 mg/dL
[2021-08-10 12:32] LABS: PROLACTIN 10.89 ng/mL
[2021-08-10 12:43] LABS: BILIRUBIN,URINE NEGATIVE (NEGATIVE); GLUCOSE, URINE (UA) NEGATIVE (NEGATIVE); KETONES,URINE (UA) NEGATIVE (NEGATIVE); LEUKOCYTE ESTERASE, URINE NEGATIVE (NEGATIVE); NITRITE,URINE NEGATIVE (NEGATIVE); OCCULT BLOOD,URINE TRACE-INTA (NEGATIVE); PROTEIN,URINE NEGATIVE (NEGATIVE); UROBILINOGEN,URINE 0.2 (NORMAL) E.U./dL (NORMAL)
[2021-08-10 12:47] LABS: CLARITY,URINE CLEAR (CLEAR)
[2021-08-10 12:55] LABS: LUTEINIZING HORMONE 3.46 mIU/mL
[2021-08-10 15:16] LABS: BASOPHILS # (AUTO) 0.1 10^3/uL (0.0-0.1); EOSINOPHILS # (AUTO) 0.1 10^3/uL (0.0-0.7); EOSINOPHILS % (AUTO) 1.9 %; HCT - HEMATOCRIT 44.7 % (42.0-52.0); HGB - HEMOGLOBIN 14.9 g/dL (14.0-18.0); LYMPHOCYTES # (AUTO) 1.3 10^3/uL (1.5-3.5); LYMPHOCYTES % (AUTO) 27.3 %; MEAN CORPUSCULAR HEMOGLOBIN 31.6 pg (27.0-31.0); MEAN CORPUSCULAR HGB CONC 33.3 g/dL (32.0-36.0); MEAN CORPUSCULAR VOLUME 94.9 fL (80.0-94.0); MEAN PLATELET VOLUME 10.1 fL (7.4-11.4); MONOCYTES # (AUTO) 0.4 10^3/uL (0.0-1.0); MONOCYTES % (AUTO) 9.2 %; NEUTROPHILS # (AUTO) 2.9 10^3/uL (1.5-6.6); NEUTROPHILS % (AUTO) 60.6 %; PLT - PLATELET COUNT 297 10^3/uL (130-450); RED BLOOD COUNT 4.71 10^6/uL (4.70-6.10); RED CELL DISTRIBUTION WIDTH 12.4 % (12.0-15.0); WHITE BLOOD COUNT 4.8 x10^3/uL (4.8-10.8)
[2021-08-10 15:53] LABS: THYROID STIMULATING HORMONE 3.89 uIU/mL (0.34-5.60)
== END 2021-08-10 08:27 | disposition home or self-care (01) ==
LOC: LAB.N 08:26
PROVIDERS: ATTEND Internal Medicine
DX: I10 Essential (primary) hypertension (principal); E78.5 Hyperlipidemia, unspecified; N40.1 Benign prostatic hyperplasia with lower urinary tract symptoms; R53.81 Other malaise; R53.83 Other fatigue; Z86.59 Personal history of other mental and behavioral disorders
CPT/HCPCS: 36415; 80053; 80061; 81001; 81003; 83002; 83721; 84146; 84153; 84403; 84443; 85025; 87086

== ENCOUNTER 2022-05-17 07:30 | Outpatient (CLI) | payer BC | END 2022-05-17 07:45 | disposition home or self-care (01) | LOC: LAB.N 07:30 | PROVIDERS: ATTEND Family Medicine | DX: N50.1 Vascular disorders of male genital organs (principal); R30.0 Dysuria | CPT/HCPCS: 87086 ==

== ENCOUNTER 2022-05-17 09:28 | Outpatient (CLI) | payer BC ==
--- NOTE | 2022-05-17 10:36 | Ultrasound Report ---
PROCEDURE: Testicle INDICATIONS: HEMORRHAGE OF SCROTUM TECHNIQUE: Real-time scanning was performed of the scrotum and testicles, with image documentation. Color and p ulse Doppler interrogation was performed of both testicles. COMPARISON: None. FINDINGS: Right: Testicle is normal in size at 5.9 x 3 x 3.9 cm, and homogenous in echotexture. Epididymis is normal in overall size and show heterogeneous parenchymal echotexture. Small amount of right-sided h ydrocele is seen. No varicoceles.. Overlying scrotal skin is normal in thickness. Left: Testicle is normal in size at 5.7 x 2.7 x 4.1 cm, and homogeneous in echotexture. Epididymis is normal in overall size and morphology. Tiny left epididymal head cyst is seen. Trace amount of lef t hydrocele is noted. No varicoceles. Overlying scrotal skin is normal in thickness. Doppler: Color and pulse Doppler demonstrate normal and symmetric arterial flow in both testicles. Increased vascularity is noted in right epididymis is seen. IMPRESSION: 1. Finding is suggestive of right-sided epididymitis. 2. Small right greater than left bilateral hydroceles. 3. Normal-appearing bilateral testes. No evidence of testicular torsion. Reviewed by: Anthony Jorgensen MD on 05/17/2022 10:34 AM PST Approved by: Anthony Jorgensen MD on 05/17/2022 10:34 AM PST Station ID: [id number]
== END 2022-05-17 09:29 | disposition home or self-care (01) ==
LOC: DI 09:28
PROVIDERS: ATTEND Family Medicine
DX: N50.1 Vascular disorders of male genital organs (principal); R30.0 Dysuria; R31.9 Hematuria, unspecified; N43.3 Hydrocele, unspecified
CPT/HCPCS: 87086

== ENCOUNTER 2023-05-09 08:23 | Outpatient (CLI) | payer BC ==
[2023-05-09 12:22] LABS: BASOPHILS # (AUTO) 0.1 10^3/uL (0.0-0.1); BASOPHILS % (AUTO) 1.4 %; EOSINOPHILS # (AUTO) 0.1 10^3/uL (0.0-0.7); EOSINOPHILS % (AUTO) 2.7 %; HCT - HEMATOCRIT 44.8 % (42.0-52.0); HGB - HEMOGLOBIN 14.9 g/dL (14.0-18.0); LYMPHOCYTES # (AUTO) 1.3 10^3/uL (1.5-3.5); LYMPHOCYTES % (AUTO) 30.2 %; MEAN CORPUSCULAR HEMOGLOBIN 31.6 pg (27.0-31.0); MEAN CORPUSCULAR HGB CONC 33.3 g/dL (32.0-36.0); MEAN CORPUSCULAR VOLUME 95.1 fL (80.0-94.0); MEAN PLATELET VOLUME 9.6 fL (7.4-11.4); MONOCYTES # (AUTO) 0.5 10^3/uL (0.0-1.0); MONOCYTES % (AUTO) 10.9 %; NEUTROPHILS # (AUTO) 2.4 10^3/uL (1.5-6.6); NEUTROPHILS % (AUTO) 54.6 %; PLT - PLATELET COUNT 286 10^3/uL (130-450); RED BLOOD COUNT 4.71 10^6/uL (4.70-6.10); RED CELL DISTRIBUTION WIDTH 12.6 % (12.0-15.0); WHITE BLOOD COUNT 4.4 x10^3/uL (4.8-10.8)
[2023-05-09 12:42] LABS: ALBUMIN 4.4 g/dL (3.2-5.5); ALBUMIN/GLOBULIN RATIO 1.5 (1.0-2.2); ALKALINE PHOSPHATASE 54 IU/L (42-121); ALT ALANINE AMINOTRANSFERASE 22 IU/L (10-60); AST ASPARTATE AMINOTRANSFERASE 17 IU/L (10-42); BILIRUBIN,TOTAL 0.5 mg/dL (0.2-1.0); BUN - BLOOD UREA NITROGEN 21 mg/dL (6-20); CALCIUM 9.5 mg/dL (8.5-10.3); CARBON DIOXIDE - CO2 26 mmol/L (21-32); CHLORIDE 106 mmol/L (101-111); CHOL/HDL RATIO 3.6 (<5.0); CHOLESTEROL 146 mg/dL; CREATININE 1.1 mg/dL (0.6-1.3); GFR - MDRD 70 (>89); GLUCOSE 92 mg/dL (74-104); HDL CHOLESTEROL 41 mg/dL; LDL CHOLESTEROL,CALCULATED 84 mg/dL; POTASSIUM 4.1 mmol/L (3.5-4.5); SODIUM 138 mmol/L (135-145); TOTAL PROTEIN 7.3 g/dL (6.4-8.9); TRIGLYCERIDES 104 mg/dL (48-352); VLDL CHOLESTEROL 21 mg/dL
== END 2023-05-09 08:24 | disposition home or self-care (01) ==
LOC: LAB.N 08:23
PROVIDERS: ATTEND Internal Medicine
DX: I10 Essential (primary) hypertension (principal); E78.5 Hyperlipidemia, unspecified; N40.1 Benign prostatic hyperplasia with lower urinary tract symptoms
CPT/HCPCS: 36415; 80053; 80061; 83721; 84153; 85025

== ENCOUNTER 2023-07-15 13:51 | Outpatient (CLI) | payer BC ==
[2023-07-15 14:19] LABS: ALBUMIN 4.4 g/dL (3.2-5.5); ALKALINE PHOSPHATASE 59 IU/L (42-121); ALT ALANINE AMINOTRANSFERASE 25 IU/L (10-60); AST ASPARTATE AMINOTRANSFERASE 18 IU/L (10-42); BILIRUBIN,DIRECT < 0.10 mg/dL (0.03-0.18); BILIRUBIN,TOTAL 0.4 mg/dL (0.2-1.0); TOTAL PROTEIN 7.4 g/dL (6.4-8.9)
== END 2023-07-15 13:52 | disposition home or self-care (01) ==
LOC: LAB 13:51
PROVIDERS: ATTEND Internal Medicine
DX: B35.1 Tinea unguium (principal)
CPT/HCPCS: 36415; 80076

== ENCOUNTER 2023-11-18 09:06 | Outpatient (CLI) | payer BC ==
[2023-11-18 09:30] LABS: ALBUMIN 4.5 g/dL (3.2-5.5); BILIRUBIN,DIRECT 0.13 mg/dL (0.03-0.18); BILIRUBIN,TOTAL 0.6 mg/dL (0.2-1.0); TOTAL PROTEIN 7.9 g/dL (6.4-8.9)
[2023-11-18 09:44] LABS: THYROID STIMULATING HORMONE 1.92 uIU/mL (0.34-5.60)
== END 2023-11-18 09:07 | disposition home or self-care (01) ==
LOC: LAB 09:06
PROVIDERS: ATTEND Internal Medicine
DX: B35.1 Tinea unguium (principal); R53.83 Other fatigue
CPT/HCPCS: 36415; 80076; 84443